=== PATIENT | male | born 1985 | race Caucasian/White ===

== ENCOUNTER 2017-03-17 16:04 | Inpatient (IN) | payer SELFPAY ==
[2017-03-17] MEDS ORDERED: MORPHINE IV ONE (16:50)
[2017-03-17] MEDS ORDERED: NITRO-BID 2% TP ONE (16:50)
[2017-03-17] MEDS ORDERED: ZOFRAN IV ONE (16:50)
[2017-03-17 17:07] LABS: Blood Urea Nitrogen 12 mg/dL (9-20); Calcium 9.4 mg/dL (8.4-10.2); Carbon Dioxide 23 mmol/L (22-30); Glucose 105 mg/dL (75-100)
[2017-03-17 17:08] LABS: Anion Gap 22 mmol/L; Chloride 98.5 mmol/L (98-107); Sodium 139 mmol/L (137-145)
[2017-03-17 17:10] LABS: Basophils % (Auto) 0.5 % (0.0-1.8); Eosinophils % (Auto) 1.1 % (0.0-4.3); Hematocrit 42.4 % (35.5-45.6); Hemoglobin 14.5 gm/dl (11.8-15.2); Mean Corpuscular HGB Conc 34 % (32-34); Mean Corpuscular Hemoglobin 31 pg (28-32); Mean Corpuscular Volume 90 fl (84-94); Platelet Count 247 K/mm3 (140-440); Red Blood Count 4.73 M/mm3 (3.65-5.03); White Blood Count 10.2 K/mm3 (4.5-11.0)
--- NOTE | 2017-03-17 17:12 | Emergency Department Report ---
HPI - General Chief Complaint: Chest Pain Time Seen by Provider: 03/17/17 16:41 - HPI HPI: Room 22 The patient is a 31-year-old male presenting with a chief complaint of chest pain. The patient is currently at [facility] under 1013. The patient states he awakened this morning and noticed left-sided chest pain described as an elephant sitting on his chest. Patient states the pain was initially a 2/ 10. He states the pain worsened and increased with 7/10. Patient does admit to slight shortness of breath, diaphoresis and nausea without vomiting. The patient states the chest pain has improved somewhat to a 5/10 but is still present. Patient states she had a stress test 2 weeks ago but has never had a cardiac catheterization Location: Chest Duration: Constant since this morning Quality: Like an elephant sitting on his chest Severity: 5/10 Modifying factors: [see above] Context: [see above] Mode of transportation: [not driving] ED Past Medical Hx - Past Medical History Previous Medical History?: Yes Hx Diabetes: Yes Hx Psychiatric Treatment: Yes (bipolar, overdose on meds klonopin) Additional medical history: Thoracic aortic aneurysm - Surgical History Past Surgical History?: No - Family History Family history: no significant - Social History Smoking Status: Current Every Day Smoker (1/2 pack per day) Substance Use Type: None (denies illicit drug use) - Medications Home Medications: Home Medications Medication Instructions Recorded Confirmed Last Taken Type Benadryl Inj 50mg/Ml 03/17/17 Unknown History Benztropine [Cogentin] 1 mg PO QID PRN 03/17/17 03/17/17 Unknown History Divalproex ER [DepaKOTE ER] 500 mg PO BID 03/17/17 03/17/17 03/17/17 History Ibuprofen [Motrin] 800 mg PO Q8HR PRN 03/17/17 03/17/17 Unknown History LORazepam [Ativan] 1 mg IJ Q8H 03/17/17 03/17/17 Unknown History LORazepam [Ativan] 1 mg PO TID PRN 03/17/17 03/17/17 Unknown History Loperamide [Imodium] 2 mg PO Q2HR PRN 03/17/17 03/17/17 Unknown History Magnesium Hydroxide [Milk of 400 mg PO DAILY PRN 03/17/17 03/17/17 Unknown History Magnesia] Menthol [Ricola] 03/17/17 Unknown History Metformin HCl [Fortamet ER] 1,000 mg PO BID 03/17/17 03/17/17 03/17/17 History Mylanta 03/17/17 Unknown History PARoxetine [Paxil] 20 mg PO DAILY 03/17/17 03/17/17 03/17/17 History Phenergan Injection 03/17/17 Unknown History Promethazine [Phenergan TAB] 25 mg PO Q4H PRN 03/17/17 03/17/17 Unknown History cloNIDine [Catapres] 0.1 mg PO Q8H PRN 03/17/17 03/17/17 Unknown History clonazePAM [KlonoPIN] 1 tab PO DAILY 03/17/17 03/17/17 Unknown History traZODone [Desyrel] 50 mg PO QHS 03/17/17 03/17/17 Unknown History ED Review of Systems ROS: Stated complaint: CHEST PAIN Other details as noted in HPI Comment: All other systems reviewed and negative Constitutional: diaphoresis Eyes: denies: eye pain, eye discharge, vision change ENT: denies: ear pain, throat pain Respiratory: shortness of breath Cardiovascular: chest pain Endocrine: no symptoms reported Gastrointestinal: nausea. denies: vomiting Genitourinary: denies: urgency, dysuria Musculoskeletal: denies: back pain, joint swelling, arthralgia Skin: denies: rash, lesions Neurological: denies: headache, weakness, paresthesias Psychiatric: denies: anxiety, depression Hematological/Lymphatic: denies: easy bleeding, easy bruising Physical Exam - Physical Exam Vital Signs: Vital Signs 03/17/17 03/17/17 16:05 16:16 Temperature 97.6 F 97.8 F Pulse Rate 77 78 Respiratory 18 18 Rate Blood Pressure 117/82 O2 Sat by Pulse 98 96 Oximetry Physical Exam: GENERAL: The patient is well-developed well-nourished male lying on stretcher not appearing to be in acute distress. [] HEENT: Normocephalic. Atraumatic. Extraocular motions are intact. Patient has moist mucous membranes. NECK: Supple. Trachea midline CHEST/LUNGS: Clear to auscultation. There is no respiratory distress noted. HEART/CARDIOVASCULAR: Regular. There is no tachycardia. There is no gallop rub or murmur. ABDOMEN: Abdomen is soft, nontender. Patient has normal bowel sounds. There is no abdominal distention. SKIN: There is no rash. There is no edema. There is no diaphoresis. NEURO: The patient is awake, alert, and oriented. The patient is cooperative. The patient has normal speech MUSCULOSKELETAL: There is no evidence of acute injury. ED Course Vital Signs 03/17/17 03/17/17 16:05 16:16 Temperature 97.6 F 97.8 F Pulse Rate 77 78 Respiratory 18 18 Rate Blood Pressure 117/82 O2 Sat by Pulse 98 96 Oximetry ED Medical Decision Making - Lab Data Result diagrams: 03/17/17 16:34 03/17/17 16:34 Laboratory Tests 03/17/17 03/17/17 03/17/17 16:34 16:34 17:04 WBC 10.2 RBC 4.73 Hgb 14.5 Hct 42.4 MCV 90 MCH 31 MCHC 34 RDW 13.0 L Plt Count 247 Lymph % (Auto) 37.1 H [place] % (Auto) 7.1 Eos % (Auto) 1.1 Baso % (Auto) 0.5 Lymph # 3.8 [place] # 0.7 Eos # 0.1 Baso # 0.1 Seg Neutrophils % 54.2 Seg Neutrophils # 5.5 Sodium 139 Potassium 4.0 Chloride 98.5 Carbon Dioxide 23 Anion Gap 22 BUN 12 Creatinine 0.8 Estimated GFR > 60 BUN/Creatinine Ratio 15.00 Glucose 105 H Calcium 9.4 Troponin T < 0.010 Valproic Acid 33.1 L - EKG Data -: EKG Interpreted by Id EKG shows normal: sinus rhythm Rate: normal - EKG Data When compared to previous EKG there are: previous EKG unavailable Interpretation: nonspecific ST-T wave destiny (T-wave inversion in lead 3) - Radiology Data Radiology results: report reviewed (CT chest), image reviewed (CT chest) CT chest (read by radiologist)- no central or segmental pulmonary embolism. Patient being aortic aneurysm measuring 4.6 x 4.4 cm at the level of the main pulmonary artery. No findings of acute aortic syndrome. - Differential Diagnosis ACS, thoracic aneurysm, GERD, pericarditis Critical care attestation.: If time is entered above; I have spent that time in minutes in the direct care of this critically ill patient, excluding procedure time. ED Disposition Clinical Impression: Chest pain Disposition: OP ADMITTED IP TO THIS HOSP Is pt being admited?: Yes Does the pt Need Aspirin: Yes Condition: Fair Instructions: Chest Pain (ED) Referrals: PRIMARY CARE,MD [Primary Care Provider] - 3-5 Days Time of Disposition: 18:02 (hospitalist paged)
--- NOTE | 2017-03-17 17:40 | Admit Criteria Form ---
Admission Criteria Documentation: CARDIOLOGY GRG Clinical Indications for Admission to Inpatient Care ( Place 'X' for any and all applicable criteria): Hospital admission is needed for appropriate care of the patient because of ANY ONE of the following (1): [ ] I. Hemodynamic instability as indicated by ALL of the following (1)(2)(3) (4)(5) [ ]a) Vital signs or other findings not as expected for chronic patient condition or baseline [ ]b) Instability indicated by ANY ONE of the following: [ ]i) Hypotension [ ]ii) Symptomatic Tachycardia unresponsive to treatment ( e.g., analgesia, fluids, sedation as indicated) [ ]iii) Inadequate perfusion indicated by ANY ONE of the following: [ ] 1) Lactic acidosis (> 2 mmol/L) [ ] 2) New abnormal capillary refill (> 3 seconds) [ ] 3) Reduced urine output [ ] 4) New altered mental status [ ]iv) Orthostatic vital sign changes unresponsive to treatment (e.g., fluids) [ ]v) IV inotropic or vasopressor medication required to maintain adequate blood pressure or perfusion [ ] II. Severe heart failure as indicated by ANY ONE of the following(17)(18) [ ]a) Respiratory distress [ ]b) Hypotension [ ]c) Anasarca (refractory to outpatient therapy) [ ]d) Cardiac arrhythmias of immediate concern [ ]e) Myocardial ischemia [ ] III. Cardiac arrhythmias or findings of immediate concern indicated by ANY ONE of the following (19)(20): [ ] a) Heart rhythms that are inherently dangerous or unstable indicated by ANY ONE of the following (21)(22)(23): [ ] i) Resuscitated ventricular fibrillation or cardiac arrest [ ] ii) Ventricular escape rhythm [ ] iii) Sustained ventricular tachycardia (30 seconds or more of ventricular rhythm at greater than 100 beats per minute) [ ] iv) Nonsustained ventricular tachycardia and ANY ONE of the following: [ ] 1) Suspected cardiac ischemia as cause or consequence of ventricular tachycardia [ ] 2) In setting of acute myocarditis [ ] b) Unstable cardiac conduction defects indicated by ANY ONE of the following(23)(24)(25) [ ] i) Type II second-degree atrioventricular block [ ]ii) Third-degree atrioventricular block [ ]iii) New-onset left bundle branch block with suspected myocardial ischemia [ ]c) Any heart rhythm and ANY ONE of the following (21)(22)(26)(27) (28) [ ] i) Continuous long-term ECG monitoring needed (e.g., initiation of drug requiring monitoring for more than 24 hours) [ ] ii) Patient has automatic implanted cardioverter defibrillator that is repeatedly firing, malfunctioning, or in need of immediate adjustment of settings beyond the scope of ambulatory or observation care [ ]d) Heart rhythms of concern due to ANY ONE of the following: [ ] i) Hypotension [ ] ii) Respiratory distress [ ] iii) Association with other significant symptoms (e.g., bradycardia with syncope or ongoing dizziness, supraventricular tachycardia with chest pain (14)(15)(17) [ ] IV. Monitoring for cardiac contusion beyond the scope of observation care needed [A](30)(31)(32) [ ] V. Surgical or device complication (e.g., valve replacement complication , pacemaker dysfunction) (35)(41)(44)(45)(46) [ ] . Inpatient palliative care needed. [B](49) Also use Inpatient Palliative Care Criteria [ ] VII. Nonbacterial thrombotic (marantic) endocarditis (36)(43)(47)(48) [X ] VIII. Cardiology condition, symptom, or finding for which emergency and observation care has failed or are not considered appropriate. [ ] IX. Acute valvular disease requiring inpatient as indicated by ANY ONE of the following (41) [ ]a) Acute valvular regurgitation (42) [ ]b) Noninfectious valvulitis (43) [ ]c) Obstructive valve thrombosis [ ]d) Paravalvular leak [ ]e) Other significant valvular disorder remaining after emergency or observation level of care (as appropriate) [ ]X. Pericardial disease requiring inpatient treatment as indicated by ANY ONE of the following (33)(34)(35)(36)(37) [ ]a) Suspected tamponade (38)(39)(40) [ ]b) Hemopericardium [ ]c) Other significant pericardial disorder remaining after emergency or observation level of care (as appropriate) [ ] XI. Cardiac ischemia beyond scope of emergency and observation care. [ ] XII. Hypertension requiring inpatient treatment as indicated by ANY ONE of the following (6)(7)(8) [ ]a) SBP greater than 220 mm Hg or DBP greater than 120 mmHg despite treatment [ ]b) SBP greater than 140 mm Hg or DBP greater than 100 mm Hg with evidence of acute end organ damage as indicated by ANY ONE of the following [ ] i) Altered mental status [ ] ii) Acute renal failure as indicated by new onset of ANY ONE of the following (9)(10)(11)(12)(13) [ ]1) 3-fold rise in serum creatinine from baseline [ ]2) Serum creatinine greater than 4 mg/dL ( 354 micromoles/L) with acute rise greater than 0.5 mg/dL (44.2 micromoles/L) [ ]3) Reduction of more than 75% in estimated glomerular filtration rate from baseline [ ]4) Estimated glomerular filtration rate less than 35 mL/min/1.73m2 (0.59 mL/sec/1.73m2) in child up to 18 years of age [ ]5) Cessation of urine output indicated by ALL of the following [ ]A. Adequate volume status [ ]B. Inadequate urine output as indicated by ANY ONE of the following [ ]a. Urine output less than 0.3 mL/kg/hr for 24 hours [ ]b. Anuria (urine output less than 0.1 mL/kg/hr) for 12 hours [ ] iii) Aortic dissection [ ] iv) Myocardial Ischemia [ ] v) Left ventricular heart failure [ ]vi) Retinal Hemorrhage [ ]vii) Other significant finding [ ]c) Hypertension in child requiring inpatient treatment as indicated by ALL of the following(14)(15)(16) [ ] i) Outpatient treatment not effective, not available, or not appropriate [ ]ii) SBP or DBP greater than 95th percentile for age [ ]iii) Evidence of acute end organ damage as indicated by ANY ONE of the following [ ]1) Altered mental status [ ]2) Acute renal failure as indicated by new onset of ANY ONE of the following(9)(10)(11)(12)(13) [ ]A. 3-fold rise in serum creatinine from baseline [ ]B. Serum creatinine greater than 4 mg/dL (354 micromoles/L) with acute rise greater than 0.5 mg/dL (44.2 micromoles/L) [ ]C. Reduction of more than 75% in estimated glomerular filtration rate from baseline [ ]D. Estimated glomerular filtration rate less than 35 mL/min/1.73m2 (0.59 mL/sec/1.73m2) in child up to 18 years of age [ ]E. Cessation of urine output indicated by ALL of the following [ ]a. Adequate volume status [ ]b. Inadequate urine output as indicated by ANY ONE of the following [ ]i) Urine output less than 0.3 mL/kg/hr for 24 hours [ ]ii) Anuria ( urine output less than 0.1 mL/kg/hr) for 12 hours [ ]3) Severe headache [ ]4) Visual disturbance [ ]5) Retinal hemorrhage [ ]6) Other significant finding [ ]XIII. Complications of transplanted heart indicated by ANY ONE of the following(61): [ ]a) Acute graft rejection requiring inpatient management (eg, intravenous immunosuppression)(62)(63) [ ]b) Acute graft heart failure indicated by ANY ONE of the following(64): [ ]i) Hemodynamic instability [ ]ii) Cardiac arrhythmias of immediate concern [ ]iii) Pulmonary edema that is very severe (eg, mechanical ventilation needed, imminent or likely, need for 100% oxygen to keep oxygen saturation above 90%) [ ]iv) Pulmonary edema that is persistent as indicated by ALL of the following: [ ]1) New need for oxygen therapy to keep oxygen saturation above 90% (or increased FiO2 need from baseline) [ ]2) Has not improved sufficiently with emergency department or observation care IV diuretics or other heart failure treatments[E] [ ]v) Altered mental status that is severe or persistent [ ]vi) Increased creatinine (new on laboratory test) with reduction of more than 50% in estimated glomerular filtration rate from baseline [ ]vii) Progressively (ongoing) rising creatinine (known from past laboratory test) with reduction of more than 25% in estimated glomerular filtration rate from baseline [ ]viii) Acute renal failure [ ]ix) Acute peripheral ischemia (eg, examination shows pulseless, cool, mottled, or cyanotic extremity) [ ]x) Pulmonary artery catheter monitoring needed [ ]xi) Other sign or symptom of heart failure requiring inpatient treatment (ie, too severe or not responsive to outpatient and observation care treatment) [ ]c) Infection requiring inpatient management (eg, Hemodynamic instability, need for intravenous antimicrobial treatment)(66)(67)(68)(69)(70) [ ]d) Cardiac allograft vasculopathy requiring inpatient management ( eg evidence of cardiac ischemia)(71) [ ]e) Other complication of transplanted heart (eg, stroke, severe pulmonary hypertension, severe valvular dysfunction) requiring inpatient management(72) The original [facility] [employer] content created by [facility] has been revised. The portions of the content which have been revised are identified through the use of italic text or in bold, and [facility] has neither reviewed nor approved the modified material. All other unmodified content is copyright [facility]. Please see references footnoted in the original [facility] edition 2016 Admission Criteria Met: Yes
--- NOTE | 2017-03-17 18:00 | Cat Scan Report ---
FINAL REPORT EXAM: CT ANGIO CHEST HISTORY: chest pain. History of thoracic aneurysm 4.5 cm TECHNIQUE: CT imaging obtained through the chest following intravenous administration of contrast. Transaxial, Coronal and sagittal reformats are provided. PRIORS: None. FINDINGS: The ascending aorta measures approximately 4.6 x 4.4 cm at the level of the main pulmonary artery. No cardiomegaly or pericardial effusion. No central or large segmental pulmonary embolism. The descending thoracic aorta is normal in course and caliber. No periaortic stranding or fluid. No intraluminal irregularity/dissection flap identified within limits of this examination. No pneumothorax, effusion or focal airspace disease. The central airways are patent. No bronchiectasis. Imaged portion of the upper abdomen is unremarkable. The superficial soft tissues are unremarkable. No acute bony abnormality or worrisome osseous lesions identified. IMPRESSION: No central or large segmental pulmonary embolism. Ascending aortic aneurysm measuring 4.6 x 4.4 cm at the level of the main pulmonary artery. No findings of acute aortic syndrome.
[2017-03-17 18:07] LABS: Creatine Kinase MB 1.6 ng/mL (0.0-4.0)
[2017-03-17] MEDS ORDERED: SODIUM CHLORIDE FLUSH SYRINGE 10 ML IV PRN (19:29)
[2017-03-17] MEDS ORDERED: MORPHINE IV PRN (19:29)
[2017-03-17] MEDS ORDERED: COGENTIN PO PRN (19:32)
[2017-03-17] MEDS ORDERED: MILK OF MAGNESIA PO PRN (19:32)
[2017-03-17] MEDS ORDERED: MOTRIN PO PRN (19:32)
[2017-03-17] MEDS ORDERED: PHENERGAN PO PRN (19:32)
[2017-03-17] MEDS ORDERED: CATAPRES PO PRN (19:32)
[2017-03-17] MEDS ORDERED: ATIVAN PO PRN (19:32)
[2017-03-17] MEDS ORDERED: IMODIUM PO PRN (19:32)
[2017-03-17] MEDS ORDERED: D50W (25GM) IV PRN (19:34)
--- NOTE | 2017-03-17 19:59 | History and Physical Report ---
History of Present Illness Date of examination: 03/17/17 Date of admission: 03/17/17 18:07 Chief complaint: Chest pain History of present illness: 31-year-old male brought to ED from [place] for the complaints of mid- sternal chest pain. Pressure-like pain, 7 out of 10 with no radiation, no aggravating or relieving factors identified, associated with diaphoresis and shortness of breath. Patient denies cough, palpitation, leg swelling but admitted for nausea. Patient is from [place] and he is there for benzo overdose , suicidal ideation. REVIEW OF SYSTEMS: GENERAL: no weight change, no fatigue, no fever HEAD: no head ache EYES: no blurry vision, no acute visual loss EARS: no hearing loss, no discharge, no earache NOSE: no stuffiness, no sneezing, no discharge MOUTH, THROAT AND NECK: no bleeding gums, no sore throat, no swollen neck CARDIAC: no palpitations, + dyspnea on exertion, no orthopnea, no PND, no edema , + chest pain RESPIRATORY: + shortness of breath, no wheeze, no cough, no sputum, no hemoptysis, no asthma GI: no decreased appetite, no nausea, no vomiting, no dysphagia, no diarrhea, no constipation, no abdominal pain URINARY: no change in frequency, no urgency, no polyuria, no hematuria, no incontinence MUSCULOSKELETAL: no muscle weakness, no pain, no joint stiffness NEUROLOGIC: no loss of sensation/numbness, no tingling, no tremors, no weakness/ paralysis HEMATOLOGIC: no anemia, no easy bruising SKIN: no rashes ENDOCRINE: no heat/cold intolerance, no polyuria, no polydipsia, no thyroid problems PSYCHIATRIC: no anxiety, no depression, no suicidal ideations Past History Past Medical History: diabetes, hypertension, other (bipolar disorder, depression, artery aneurysm) Past Surgical History: No surgical history Social history: smoking (one pack per day), full code. denies: alcohol abuse, prescription drug abuse, IV drug use Family history: no significant family history Medications and Allergies Allergies Allergy/AdvReac Type Severity Reaction Status Date / Time insulin regular Allergy Dizziness Verified 03/17/17 16:15 Home Medications Medication Instructions Recorded Confirmed Last Taken Type Benadryl Inj 50mg/Ml 03/17/17 Unknown History Benztropine [Cogentin] 1 mg PO QID PRN 03/17/17 03/17/17 Unknown History Divalproex ER [DepaKOTE ER] 500 mg PO BID 03/17/17 03/17/17 03/17/17 History Ibuprofen [Motrin] 800 mg PO Q8HR PRN 03/17/17 03/17/17 Unknown History LORazepam [Ativan] 1 mg IJ Q8H 03/17/17 03/17/17 Unknown History LORazepam [Ativan] 1 mg PO TID PRN 03/17/17 03/17/17 Unknown History Loperamide [Imodium] 2 mg PO Q2HR PRN 03/17/17 03/17/17 Unknown History Magnesium Hydroxide [Milk of 400 mg PO DAILY PRN 03/17/17 03/17/17 Unknown History Magnesia] Menthol [Ricola] 03/17/17 Unknown History Metformin HCl [Fortamet ER] 1,000 mg PO BID 03/17/17 03/17/17 03/17/17 History Mylanta 03/17/17 Unknown History PARoxetine [Paxil] 20 mg PO DAILY 03/17/17 03/17/17 03/17/17 History Phenergan Injection 03/17/17 Unknown History Promethazine [Phenergan TAB] 25 mg PO Q4H PRN 03/17/17 03/17/17 Unknown History cloNIDine [Catapres] 0.1 mg PO Q8H PRN 03/17/17 03/17/17 Unknown History clonazePAM [KlonoPIN] 1 tab PO DAILY 03/17/17 03/17/17 Unknown History traZODone [Desyrel] 50 mg PO QHS 03/17/17 03/17/17 Unknown History Active Meds: Active Medications Aspirin (Baby Aspirin) 81 mg PO QDAY [facility] Benztropine Mesylate (Cogentin) 1 mg PO QID PRN PRN Reason: Agitation Clonazepam (Klonopin) mg PO DAILY [facility] Clonidine HCl (Catapres) 0.1 mg PO Q8H PRN PRN Reason: high b/p Dextrose (D50w (25gm)) 50 ml IV PRN PRN PRN Reason: Hypoglycemia Divalproex Sodium (Depakote Er) 500 mg PO BID [facility] Docusate Sodium (Colace) 100 mg PO BID [facility] Enoxaparin Sodium (Lovenox) 40 mg SUB-Q QDAY@2200 [facility] Famotidine (Pepcid) 20 mg PO BID [facility] Ibuprofen (Motrin) 800 mg PO Q8HR PRN PRN Reason: Pain Insulin Aspart (Novolog) 0 units SUB-Q QHS [facility] PRN Reason: Protocol Insulin Detemir (Levemir) 10 units SUB-Q QHS [facility] Loperamide HCl (Imodium) 2 mg PO Q2HR PRN PRN Reason: loose b.m. Lorazepam (Ativan) 1 mg PO TID PRN PRN Reason: Agitation Magnesium Hydroxide (Milk Of Magnesia) ml PO DAILY PRN PRN Reason: Constipation Morphine Sulfate (Morphine) 2 mg IV Q4H PRN PRN Reason: Chest Pain Paroxetine HCl (Paxil) 20 mg PO DAILY [facility] Promethazine HCl (Phenergan) 25 mg PO Q4H PRN PRN Reason: Nausea Sodium Chloride (Sodium Chloride Flush Syringe 10 Ml) 10 ml IV PRN PRN PRN Reason: LINE FLUSH Trazodone HCl (Desyrel) 50 mg PO QHS [facility] Exam - Physical Exam Narrative exam: Not in cardiopulmonary distress. The patient appeared well nourished and normally developed. Vital signs as documented. Head exam is unremarkable. No scleral icterus . Neck is without jugular venous distension, thyromegaly, or carotid bruits. Lungs are clear to auscultation. Cardiac exam reveals regular rate and Rhythm. First and second heart sounds normal. No murmurs, rubs or gallops. Abdominal exam reveals normal bowel sounds, no masses, no organomegaly and no aortic enlargement. Extremities are nonedematous and both femoral and pedal pulses are normal. 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 No focal weakness. - Constitutional Vitals: Temp Pulse Resp BP Pulse Ox 97.8 F 74 18 119/89 98 03/17/17 16:16 03/17/17 17:33 03/17/17 17:33 03/17/17 17:33 03/17/17 16:51 Results - Labs CBC & Chem 7: 03/17/17 16:34 03/17/17 16:34 Labs: Laboratory Last Values WBC 10.2 K/mm3 (4.5-11.0) 03/17/17 16:34 RBC 4.73 M/mm3 (3.65-5.03) 03/17/17 16:34 Hgb 14.5 gm/dl (11.8-15.2) 03/17/17 16:34 Hct 42.4 % (35.5-45.6) 03/17/17 16:34 MCV 90 fl (84-94) 03/17/17 16:34 MCH 31 pg (28-32) 03/17/17 16:34 MCHC 34 % (32-34) 03/17/17 16:34 RDW 13.0 % (13.2-15.2) L 03/17/17 16:34 Plt Count 247 K/mm3 (140-440) 03/17/17 16:34 Lymph % (Auto) 37.1 % (13.4-35.0) H 03/17/17 16:34 [place]ardo % (Auto) 7.1 % (0.0-7.3) 03/17/17 16:34 Eos % (Auto) 1.1 % (0.0-4.3) 03/17/17 16:34 Baso % (Auto) 0.5 % (0.0-1.8) 03/17/17 16:34 Lymph # 3.8 K/mm3 (1.2-5.4) 03/17/17 16:34 [place]ardo # 0.7 K/mm3 (0.0-0.8) 03/17/17 16:34 Eos # 0.1 K/mm3 (0.0-0.4) 03/17/17 16:34 Baso # 0.1 K/mm3 (0.0-0.1) 03/17/17 16:34 Seg Neutrophils % 54.2 % (40.0-70.0) 03/17/17 16:34 Seg Neutrophils # 5.5 K/mm3 (1.8-7.7) 03/17/17 16:34 Sodium 139 mmol/L (137-145) 03/17/17 16:34 Potassium 4.0 mmol/L (3.6-5.0) 03/17/17 16:34 Chloride 98.5 mmol/L (98-107) 03/17/17 16:34 Carbon Dioxide 23 mmol/L (22-30) 03/17/17 16:34 Anion Gap 22 mmol/L 03/17/17 16:34 BUN 12 mg/dL (9-20) 03/17/17 16:34 Creatinine 0.8 mg/dL (0.8-1.5) 03/17/17 16:34 Estimated GFR > 60 ml/min 03/17/17 16:34 BUN/Creatinine Ratio 15.00 % 03/17/17 16:34 Glucose 105 mg/dL (75-100) H 03/17/17 16:34 Calcium 9.4 mg/dL (8.4-10.2) 03/17/17 16:34 Total Creatine Kinase 118 units/L (55-170) 03/17/17 16:34 CK-MB (CK-2) 1.6 ng/mL (0.0-4.0) 03/17/17 16:34 CK-MB (CK-2) Rel Index 1.3 (0-4) 03/17/17 16:34 Troponin T < 0.010 ng/mL (0.00-0.029) 03/17/17 16:34 Valproic Acid 33.1 ug/mL (50-100) L 03/17/17 17:04 Assessment and Plan Assessment and plan: Chest pain - cardiac enzymes and EKG is negative for ischemia - Patient has a stress test done 2 weeks ago in which was negative - Despite that the patient denies chest pain, cardiology consult for further management - Patient control Aortic aneurysm - No change from baseline Bipolar/ depression - Continue all medications suicidal attempt - Patient is on 1013 DVT prophylaxis - Lovenox Disposition - To telemetry floor Advance Directives: Yes VTE prophylaxis?: Chemical Plan of care discussed with patient/family: Yes
[2017-03-17] MEDS ORDERED: LOVENOX SUB-Q SCH (22:00)
[2017-03-17] MEDS ORDERED: DESYREL PO SCH (22:00)
[2017-03-17] MEDS ORDERED: LEVEMIR SUB-Q SCH (22:00)
[2017-03-17] MEDS ORDERED: NOVOLOG SUB-Q SCH (22:00)
[2017-03-17 22:24] LABS: Creatine Kinase MB 1.5 ng/mL (0.0-4.0)
[2017-03-17] MEDS: PEPCID PO SCH (22:43)
[2017-03-17] MEDS: COLACE PO SCH (22:44)
[2017-03-18 03:29] LABS: Creatine Kinase MB 2.2 ng/mL (0.0-4.0)
[2017-03-18 03:30] LABS: Creatine Kinase 102 units/L (55-170)
[2017-03-18] MEDS ORDERED: BABY ASPIRIN PO SCH (10:00)
--- NOTE | 2017-03-18 10:20 | Consultation ---
History of Present Illness Consult date: 03/18/17 Consult reason: chest pain History of present illness: This is a 31-year-old male who is presented to the emergency room with substernal chest pain at rest. He denies exertional chest pain denies shortness of breath. Patient gives a history of aortic aneurysm measuring 4.5 cm. This is normally followed by his doctors in [facility]. I did tell him of my evaluation he has no chest pain. He states his previous CT scan done on in [place] measures his aneurysm at 4.[address] scan done here major event these at 4.6 cm: Coumadin significant change. Past History Past Medical History: diabetes, hypertension, other (bipolar disorder, depression, artery aneurysm) Past Surgical History: No surgical history Social history: smoking (one pack per day), full code. denies: alcohol abuse, prescription drug abuse, IV drug use Family history: no significant family history Medications and Allergies Allergies Allergy/AdvReac Type Severity Reaction Status Date / Time insulin regular Allergy Dizziness Verified 03/17/17 16:15 Home Medications Medication Instructions Recorded Confirmed Last Taken Type Benadryl Inj 50mg/Ml 03/17/17 Unknown History Benztropine [Cogentin] 1 mg PO QID PRN 03/17/17 03/17/17 Unknown History Divalproex ER [DepaKOTE ER] 500 mg PO BID 03/17/17 03/17/17 03/17/17 History Ibuprofen [Motrin] 800 mg PO Q8HR PRN 03/17/17 03/17/17 Unknown History LORazepam [Ativan] 1 mg IJ Q8H 03/17/17 03/17/17 Unknown History LORazepam [Ativan] 1 mg PO TID PRN 03/17/17 03/17/17 Unknown History Loperamide [Imodium] 2 mg PO Q2HR PRN 03/17/17 03/17/17 Unknown History Magnesium Hydroxide [Milk of 400 mg PO DAILY PRN 03/17/17 03/17/17 Unknown History Magnesia] Menthol [Ricola] 03/17/17 Unknown History Metformin HCl [Fortamet ER] 1,000 mg PO BID 03/17/17 03/17/17 03/17/17 History Mylanta 03/17/17 Unknown History PARoxetine [Paxil] 20 mg PO DAILY 03/17/17 03/17/17 03/17/17 History Phenergan Injection 03/17/17 Unknown History Promethazine [Phenergan TAB] 25 mg PO Q4H PRN 03/17/17 03/17/17 Unknown History cloNIDine [Catapres] 0.1 mg PO Q8H PRN 03/17/17 03/17/17 Unknown History clonazePAM [KlonoPIN] 1 tab PO DAILY 03/17/17 03/17/17 Unknown History traZODone [Desyrel] 50 mg PO QHS 03/17/17 03/17/17 Unknown History Active Meds: Active Medications Aspirin (Baby Aspirin) 81 mg PO QDAY [facility] Benztropine Mesylate (Cogentin) 1 mg PO QID PRN PRN Reason: Agitation Last Admin: 03/17/17 22:43 Dose: 1 mg Clonazepam (Klonopin) 0.5 mg PO DAILY [facility] Clonidine HCl (Catapres) 0.1 mg PO Q8H PRN PRN Reason: high b/p Dextrose (D50w (25gm)) 50 ml IV PRN PRN PRN Reason: Hypoglycemia Divalproex Sodium (Depakote Er) 500 mg PO BID [facility] Last Admin: 03/17/17 22:42 Dose: 500 mg Docusate Sodium (Colace) 100 mg PO BID [facility] Last Admin: 03/17/17 22:44 Dose: Not Given Enoxaparin Sodium (Lovenox) 40 mg SUB-Q QDAY@2200 [facility] Last Admin: 03/17/17 22:44 Dose: 40 mg Famotidine (Pepcid) 20 mg PO BID [facility] Last Admin: 03/17/17 22:43 Dose: 20 mg Ibuprofen (Motrin) 800 mg PO Q8HR PRN PRN Reason: Pain Last Admin: 03/17/17 22:43 Dose: 800 mg Insulin Aspart (Novolog) 0 units SUB-Q QHS [facility] PRN Reason: Protocol Last Admin: 03/17/17 22:44 Dose: Not Given Insulin Detemir (Levemir) 10 units SUB-Q QHS [facility] Last Admin: 03/17/17 22:44 Dose: Not Given Loperamide HCl (Imodium) 2 mg PO Q2HR PRN PRN Reason: loose b.m. Lorazepam (Ativan) 1 mg PO TID PRN PRN Reason: Agitation Magnesium Hydroxide (Milk Of Magnesia) 30 ml PO DAILY PRN PRN Reason: Constipation Morphine Sulfate (Morphine) 2 mg IV Q4H PRN PRN Reason: Chest Pain Paroxetine HCl (Paxil) 20 mg PO DAILY [facility] Promethazine HCl (Phenergan) 25 mg PO Q4H PRN PRN Reason: Nausea Sodium Chloride (Sodium Chloride Flush Syringe 10 Ml) 10 ml IV PRN PRN PRN Reason: LINE FLUSH Trazodone HCl (Desyrel) 50 mg PO QHS [facility] Last Admin: 03/17/17 22:42 Dose: 50 mg Physical Examination Vital Signs Temp Pulse Resp Pulse Ox 97.6 F 77 18 98 03/17/17 16:05 03/17/17 16:05 03/17/17 16:05 03/17/17 16:05 General appearance: no acute distress, well-nourished HEENT: Positive: PERRL, Mucus Membranes Moist Neck: Positive: neck supple, trachea midline Cardiac: Positive: Reg Rate and Rhythm, S1/S2. Negative: Audible Murmur Lungs: Positive: clear to auscultation, Normal Breath Sounds Neuro: Positive: Grossly Intact Abdomen: Positive: Soft, Active Bowel Sounds. Negative: Tender, Distended Male genitourinary: Positive: normal Skin: Positive: Clear Incision: Cardiac Cath Site Musculoskeletal: No Pain, Normal Range of Motion Extremities: Present: normal. Absent: edema Results 03/17/17 16:34 03/17/17 16:34 Cardiac Enzymes 03/17/17 03/18/17 Range/Units 21:23 02:35 CK-MB (CK-2) 1.5 2.2 (0.0-4.0) ng/mL EKG interpretations - Telemetry EKG Rhythm: Sinus Rhythm Assessment and Plan 1. Atypical chest pain currently resolved serum troponin levels are normal. No evidence of aortic dissection or rupture. 2. Stable Thoracic Aortic Aneurysm. 3. Bipolar disorder Plan. Patient currently is stable states he had a recent cardiac workup in [place] we will try to obtain this result. Resume home medication no further cardiac workup indicated at this time.
[2017-03-18] MEDS: PAXIL PO SCH ×2 (11:00)
[2017-03-18] MEDS: PEPCID PO SCH (11:00)
[2017-03-18] MEDS: COLACE PO SCH (11:05)
--- NOTE | 2017-03-18 14:06 | Discharge Summary ---
Providers - Providers Date of Admission: 03/17/17 18:07 Attending physician: AZAR CASTILLO MD 03/17/17 Consult to Cardiac Rehabilitation [CONS] Routine Reason For Exam: Phase I 03/17/17 19:29 Consult to Physician [CONS] Routine Consulting Provider: CALLUM LAYNE Reason For Exam: chest pain, recurrent Place consult to:: dr layne Notified:: dr layne Comment:: stress test was nagative 2 weeks ago in another facility Primary care physician: BUDGET RECORD CLERK Hospitalization Condition: Fair Hospital course: Agent presented with atypical chest pain. Patient workup included negative cardiac isoenzymes. Patient had negative stress test 2 weeks ago in [place]. Patient also had CT scan of abdomen which show aortic aneurysm at 4.5 cm. Patient had a new CT scan on this admission which ruled out dissecting aneurysm and was 4.6 cm. Patient had chest CT that was negative chest x-ray negative as well. Patient was stable for discharge back to facility. She'll be going back to psychiatric facility. Disposition: DC/TX PSY HOSP/PSY UNIT - Discharge Diagnoses (1) Aortic aneurysm Status: Acute Qualifiers: Aortic location: A Presence of rupture: P Comment: Stable CT scan on this admission showed no change no dissecting aneurysm. (2) Chest pain Status: Acute Qualifiers: Chest pain type: C Ischemic chest pain type: I Comment: Test pain workup negative as described in hospital course. (3) Diabetes Status: Acute Qualifiers: Diabetes mellitus type: D Diabetes mellitus complication status: D Diabetes mellitus complication detail: D Diabetic retinopathy severity: D Proliferative retinopathy type: P Diabetes mellitus macular edema: D Diabetes mellitus fpc insulin use: D Laterality: L Chronic kidney disease stage: C Comment: Has had fair control of blood sugars if he takes metformin. Continue present medication. Patient stable to return back to psychiatric facility. Core Measure Documentation - Palliative Care Palliative Care/ Comfort Measures: Not Applicable - Core Measures Any of the following diagnoses?: none Exam - Constitutional Vitals: Temp Pulse Resp BP Pulse Ox 97.5 F L 59 L 18 117/73 97 03/18/17 08:00 03/18/17 08:00 03/18/17 08:00 03/18/17 08:00 03/18/17 10:00 General appearance: Present: no acute distress, well-nourished - EENT Eyes: Present: PERRL ENT: hearing intact, clear oral mucosa - Respiratory Respiratory effort: normal Respiratory: bilateral: CTA - Cardiovascular Heart Sounds: Present: S1 & S2. Absent: rub, click - Extremities Extremities: pulses symmetrical, No edema Peripheral Pulses: within normal limits - Integumentary Integumentary: Present: clear, warm, dry - Musculoskeletal Musculoskeletal: gait normal, strength equal bilaterally - Psychiatric Psychiatric: appropriate mood/affect, intact judgment & insight - Neurologic Neurologic: CNII-XII intact, moves all extremities Plan Activity: no restrictions Weight Bearing Status: Full Weight Bearing Diet: diabetic Follow up with: PRIMARY CARE, [Primary Care Provider] - 3-5 Days Prescriptions: Divalproex ER [Depakote ER] 500 mg PO BID #30 tablet Ibuprofen [Motrin 800 MG tab] 800 mg PO Q8HR PRN #60 tablet PRN Reason: Pain Loperamide [Imodium] 2 mg PO Q2HR PRN #10 capsule PRN Reason: loose b.m.
[2017-03-18 17:28] VITALS: BP 111/72
== END 2017-03-18 18:00 | DRG 313 ==
LOC: ED 16:04 → 4A 18:07
PROVIDERS: ADMIT Internal Medicine; ATTEND Internal Medicine
DX: R07.9 Chest pain, unspecified (principal); E11.9 Type 2 diabetes mellitus without complications; F31.9 Bipolar disorder, unspecified; F17.200 Nicotine dependence, unspecified, uncomplicated; I10 Essential (primary) hypertension; I71.9 Aortic aneurysm of unspecified site, without rupture; Z88.8 Allergy status to other drugs, medicaments and biological substances
CPT/HCPCS: 36415; 71275; 80048; 80164; 82550; 82553; 82962; 84484; 85025; 93005; 93010; 96374; 96375; 99406; J1650; J1818; J2270; J2405; Q9967